=== PATIENT | female | born 1970 | race Caucasian/White ===

== ENCOUNTER → 2020-04-30 10:58 | Outpatient (CLI) | payer BC, OTHER, SELFPAY ==
--- NOTE | 2020-04-30 | DI.MG.S_ITS ---
BILATERAL DIGITAL SCREENING MAMMOGRAM 3D/2D WITH CAD: 04/30/2020 CLINICAL: Routine screening. Family history of breast cancer. Comparison is made to exams dated: 04/01/2019 mammogram and 03/29/2018 mammogram - [facility]. The tissue of both breasts is heterogeneously dense. This may lower the sensitivity of mammography. Current study was also evaluated with a Computer Aided Detection (CAD) system. No significant masses, calcifications, or other findings are seen in either breast. There has been no significant interval change. IMPRESSION: NEGATIVE There is no mammographic evidence of malignancy. A 1 year screening mammogram is recommended. This exam was interpreted at Station ID: [id number]. NOTE: For mammograms, a report in lay terms will be sent to the patient. Approximately 15% of breast malignancies will not be visualized mammographically. In the management of a palpable breast mass, a negative mammogram must not discourage biopsy of a clinically suspicious lesion. Electronically Signed By: Kyle arteaga/jeffrey:05/05/2020 12:16:29 letter sent: Normal Exam ACR BI-RADS Category 1: Negative 3341F
== END ==
PROVIDERS: PCP Nurse Practitioner Family; Referring Provider Nurse Practitioner Family; Visit Provider Nurse Practitioner Family
DX: Z12.31 Encounter for screening mammogram for malignant neoplasm of breast (principal); Z80.3 Family history of malignant neoplasm of breast
CPT/HCPCS: 77063; 77067

== ENCOUNTER → 2020-07-19 09:31 | Outpatient (CLI) | payer BC, OTHER, SELFPAY ==
[2020-07-19 10:09] LABS: COVID19 -Nasal RAPID Negative (Negative)
== END ==
PROVIDERS: PCP Nurse Practitioner Family; Visit Provider Physician Assistant
DX: Z20.822 Contact with and (suspected) exposure to COVID-19 (principal)
CPT/HCPCS: 87635

== ENCOUNTER 2020-07-21 07:17 | Day surgery (SDC) | payer BC, OTHER, SELFPAY ==
--- NOTE | 2020-07-21 | PATH_ITS ---
[facility] Accession Number: [id number] . 01 Material submitted: . PART A: cecum - CECUM BIOPSY PART B: colon - ASCENDING COLON BIOPSY PART C: colon - ASCENDING COLON POLYP PART D: colon - TRANSVERSE COLON BIOPSY PART E: colon - DESCENDING COLON BIOPSY PART F: sigmoid colon - SIGMOID COLON BIOPSY PART G: rectum - RECTUM BIOPSY . 01 Clinical history: . SCREENING COLONOSCOPY . 02 Diagnosis: A. Cecum, Biopsy: Chronic colitis with mild neutrophilic activity. Negative for granulomas, dysplasia and malignancy. . B. Ascending Colon, Biopsy: Chronic colitis with mild neutrophilic activity. Negative for granulomas, dysplasia and malignancy. . C. Ascending Colon, Polyp, Biopsy: Sessile serrated adenoma. . D. Transverse Colon, Biopsy: Minimally active colitis. Negative for granulomas, dysplasia and malignancy. . E. Descending Colon, Biopsy: Colonic mucosa with no significant diagnostic abnormality. Negative for active inflammation, granulomas, dysplasia, and malignancy. . F. Sigmoid Colon, Biopsy: Minimal distortion of the crypt architecture without active inflammation. Negative for granulomas, dysplasia and malignancy. . G. Rectum, Biopsy: Minimal distortion of the crypt architecture without active inflammation. Negative for granulomas, dysplasia and malignancy. [facility] 07/23/2020 [facility] Local . 02 Comment: The morphologic appearance is compatible with the clinical history of ulcerative colitis if infection and medication-related mucosal injury are excluded. . 02 Electronically signed: . Natividad Price MD, Pathologist NPI- [id number] . 01 Gross description: . Part A: CECUM BIOPSY: Received in formalin are 4 fragment(s) of villanueva, soft tissue measuring 0.1 x 0.1 x 0.1 cm to 0.3 x 0.2 x 0.2 cm submitted entirely in 1 cassette(s) Part B: ASCENDING COLON BIOPSY: Received in formalin are multiple fragment(s) of villanueva, soft tissue measuring 0.1 x 0.1 x 0.1 cm to 0.3 x 0.3 x 0.3 cm submitted entirely in 1 cassette(s) Part C: ASCENDING COLON POLYP: Received in formalin are 4 fragment(s) of villanueva, soft tissue measuring 0.2 x 0.1 x 0.1 cm to 0.7 x 0.6 x 0.3 cm submitted entirely in 1 cassette(s) Part D: TRANSVERSE COLON BIOPSY: Received in formalin are 4 fragment(s) of villanueva, soft tissue measuring 0.2 x 0.2 x 0.2 cm to 0.4 x 0.2 x 0.2 cm submitted entirely in 1 cassette(s) Part E: DESCENDING COLON BIOPSY: Received in formalin are 4 fragment(s) of villanueva, soft tissue measuring 0.2 x 0.1 x 0.1 cm to 0.3 x 0.2 x 0.2 cm submitted entirely in 1 cassette(s) Part F: SIGMOID COLON BIOPSY: Received in formalin are 4 fragment(s) of villanueva, soft tissue measuring 0.2 x 0.2 x 0.2 cm to 0.3 x 0.2 x 0.2 cm submitted entirely in 1 cassette(s) Part G: RECTUM BIOPSY: Received in formalin are 4 fragment(s) of villanueva, soft tissue measuring 0.1 x 0.1 x 0.1 cm to 0.5 x 0.2 x 0.2 cm submitted entirely in 1 cassette(s) /MATTHEW 07/22/2020 1859 Local . 02 Pathologist provided ICD-10: D12.2, K51.90 . 02 CPT . 314179, 670016, 576750, 179403, 091876, 223213, 525022 Performed at: 01 [facility] [address] [facility], [place], [place] [id number] MD Kyle Shetty MD Phone: [phone] Performed at: 02 [facility] [place] [address] [place], [place] [id number] MD Natividad Price MD Phone: [phone]
[2020-07-21 07:49] VITALS: BP 124/69; PULSE 62; RESP 14; TEMP 36.9; O2SAT 99
[2020-07-21] MEDS: SODIUM CHLORIDE 0.9% 1,000 ML 100 ML IV (07:49)
[2020-07-21 07:51] VITALS: BMI 26.8
--- NOTE | 2020-07-21 08:03 | PM.HP.1 ---
History of Present Illness History of Present Illness Date Patient Seen: 07/21/20 Chief complaint: SCREENING COLONOSCOPY Narrative: 50-year-old female with history of ulcerative proctosigmoiditis with last colonoscopy done in January 2019 who is here for disease activity assessment., please see my note from 04/07/2020 Patient History Medical History (Updated 07/21/20 @ 07:37 by Fabienne Lara RN) History of colitis Hyperlipidemia Ulcerative colitis Surgical History (Updated 07/21/20 @ 07:37 by Fabienne Lara RN) History of colonoscopy Family & Social History Social History: household members spouse Tobacco & Substance use: Smoking Status Never smoker alcohol intake current alcohol intake frequency a few times a week Substance Use Type does not use Meds Home Medications and Allergies Home Medications Medication Instructions Recorded Confirmed Type docusate calcium 2 mg PO BEDTIME PRN 07/21/20 07/21/20 History mesalamine 4 g CA Q3D 07/21/20 07/21/20 History Allergies Allergy/AdvReac Type Severity Reaction Status Date / Time penicillin V Allergy Intermediate Unknown Verified 07/21/20 07:38 Exam Vital Signs (past 8 hours): - 07/21/20 07:49 Temperature 98.5 F Pulse Rate 62 Respiratory Rate 14 Blood Pressure 124/69 Pulse Oximetry 99 Oxygen Delivery Method Room Air Narrative Exam Narrative: General: Patient is well developed, not in apparent distress Cardiovascular: Regular rate and rhythm, no murmurs, rubs, or gallops; no evidence of edema; no palpable abdominal aortic aneurysm Gastrointestinal: Normoactive bowel sounds, soft, nontender, nondistended, no rebound tenderness, no hepatosplenomegaly, no evidence of hernia Assessment & Plan Assessment & Plan narrative: 50-year-old female with ulcerative proctosigmoiditis here for disease activity assessment as her last colonoscopy performed in January 2019 showed persistent colitis Regarding the procedure(s), the risks and potential complications, benefits, and alternatives (including not doing the procedure) were discussed with the patient. The risks include but are not limited to bleeding, splenic injury, infection, perforation which may require surgical intervention, missed lesions, and adverse reactions to sedative medicines. After a question and answer period, the patient agreed to proceed with the procedure(s) and gives informed consent.
[2020-07-21] MEDS: fentaNYL 250 MCG/5 ML INJ IV (08:20)
--- NOTE | 2020-07-21 08:21 | PM.OP.ENDO ---
Operative Date/Time/Diagnoses Date of procedure: 07/21/20 Procedure Notes Procedure in detail: Surgeon: Tommy Frazier MD Procedure: Colonoscopy with polypectomy and biopsies Preoperative diagnosis: Ulcerative proctitis, disease activity assessment Postoperative diagnosis: Proctitis and probable inflammation in the proximal colon; ascending colon polyp status post polypectomy Medications: Conscious sedation using 5 mg IV of Midazolam and 100 mcg IV of Fentanyl Preanesthesia Assessment An H and P was performed/updated and the Px?s ASA class is 2. The procedure was discussed in detail with the patient. The potential risks and complications including infection, bleeding, missed lesions, perforation, need for surgery in case of perforation, prolonged hospital stay, and were explained. A brief question and answer period was allotted and once all questions were answered, informed consent was obtained. The patient was brought back to the procedure room and placed on standard monitoring. The patient?s vital signs were monitored continuously throughout the entire procedure. Prior to starting, a timeout was performed to confirm the patient?s identity, allergies, medications, and procedure. Procedure in detail The patient was placed in left lateral decubitus position and once adequate sedation was obtained a JARRED was performed. The digital rectal examination did not reveal any palpable lesions. The tip of the colonoscope was placed in the anal canal and advanced without difficulty all the way to the cecum which was identified by the appendiceal orifice and the ileocecal valve. Careful examination of all abreu of the colon was performed with irrigation of any residual stool. In the cecum, and proximal ascending colon, there was note of probable colitis with erythema and loss of vascular pattern. Biopsies were performed of this area. In the ascending colon, a 10 mm sessile polyp was removed by means of cold snare. Resection and retrieval was complete with minimal bleeding The distal ascending colon, transverse colon, descending colon, sigmoid colon, and rectosigmoid colon had is a normal vascular pattern. Biopsies were taken of these areas In the rectum, there was note of inflammation consistent with a history of proctitis. Biopsies were taken of this area. Retroflexion was performed which revealed no significant lesions. The patient tolerated the procedure well and will be brought back to the recovery area to be discharged once criteria are met. The prep was judged to be good and adequate to identify polyps less than 5 mm. The withdrawal time was 12 minutes. The total physician intraservice time was 23 minutes. Complications There were no complications and estimated blood loss was minimal. Recommendations: Resume previous diet Increase Lialda to 4.8 g daily (4 tablets a day) Increase mesalamine enema frequency to daily at bedtime Follow up pathology results Repeat colonoscopy in 1 year to reassess response to therapy Call our office ([facility]) to schedule follow-up with me in 3 months An emergency contact number was given to the patient for any complications related to the procedure
[2020-07-21] MEDS: MIDAZOLAM 5 MG/5 ML VIAL IV (08:30)
[2020-07-21 08:51] VITALS: BP 120/58; PULSE 55; RESP 19; TEMP 36.6; O2SAT 100
[2020-07-21 08:52] VITALS: BP 114/57; PULSE 55; RESP 18; O2SAT 99
[2020-07-21 08:56] VITALS: BP 119/58; PULSE 57; RESP 17; TEMP 36.6; O2SAT 100
[2020-07-21 09:01] VITALS: BP 125/65; PULSE 55; RESP 18; TEMP 36.6; O2SAT 100
--- NOTE | 2020-07-21 09:22 | SUR.PHASEII ---
called, pt ready to go, left unit in stable condition, belly soft denied pain no c/o nausea.
== END 2020-07-21 09:10 | disposition home or self-care (01) ==
PROVIDERS: PCP Nurse Practitioner Family; Referring Provider Nurse Practitioner Family; Visit Provider Internal Medicine Gastroenterology
PROC: 0DJD8ZZ Inspection of Lower Intestinal Tract, Via Natural or Artificial Opening Endoscopic (ICD-10-PCS; CPT 45378; principal; 2020-07-21 08:30)
DX: K51.80 Other ulcerative colitis without complications (principal); K51.20 Ulcerative (chronic) proctitis without complications; Z09 Encounter for follow-up examination after completed treatment for conditions other than malignant neoplasm; E78.5 Hyperlipidemia, unspecified; D12.2 Benign neoplasm of ascending colon
CPT/HCPCS: 45380; 45385; J2250; J3010

== ENCOUNTER → 2021-05-11 12:04 | Outpatient (CLI) | payer BC, OTHER, SELFPAY ==
--- NOTE | 2021-05-11 12:06 | DI.MG.S_ITS ---
BILATERAL DIGITAL SCREENING MAMMOGRAM 3D/2D WITH CAD: 05/11/2021 CLINICAL: Routine screening. Family history of breast cancer. Comparison is made to exams dated: 04/30/2020 mammogram - [facility], 04/01/2019 mammogram, and 03/29/2018 mammogram - [facility]. The tissue of both breasts is heterogeneously dense. This may lower the sensitivity of mammography. Current study was also evaluated with a Computer Aided Detection (CAD) system. No significant masses, calcifications, or other findings are seen in either breast. There has been no significant interval change. IMPRESSION: NEGATIVE There is no mammographic evidence of malignancy. A 1 year screening mammogram is recommended. This exam was interpreted at Station ID: [id number]. NOTE: For mammograms, a report in lay terms will be sent to the patient. Approximately 15% of breast malignancies will not be visualized mammographically. In the management of a palpable breast mass, a negative mammogram must not discourage biopsy of a clinically suspicious lesion. Electronically Signed By: Manuel higginbotham/jeffrey:05/11/2021 15:59:28 letter sent: Normal Exam ACR BI-RADS Category 1: Negative 3341F
== END ==
PROVIDERS: PCP Family Medicine; Referring Provider Nurse Practitioner Family; Visit Provider Nurse Practitioner Family
DX: Z12.31 Encounter for screening mammogram for malignant neoplasm of breast (principal); Z80.3 Family history of malignant neoplasm of breast
CPT/HCPCS: 77063; 77067

== ENCOUNTER → 2021-08-12 09:57 | Outpatient (CLI) | payer BC, OTHER, SELFPAY ==
[2021-08-12 14:17] LABS: COVID19 -Nasal RAPID Negative (Negative)
== END ==
PROVIDERS: PCP Family Medicine; Visit Provider Family Medicine Sleep Medicine
DX: Z20.822 Contact with and (suspected) exposure to COVID-19 (principal)
CPT/HCPCS: 87635; C9803

== ENCOUNTER 2021-08-15 06:42 | Day surgery (SDC) | payer BC, OTHER, SELFPAY ==
--- NOTE | 2021-08-15 | PATH_ITS ---
[facility] Accession Number: [id number] . 01 Material submitted: . PART A: colon - ASCENDING COLON BIOPSY PART B: colon - TRANSVERSE COLON BIOPSY PART C: colon - DESCENDING COLON BIOPSY PART D: colon - SIGMOID COLON BIOPSY PART E: rectum - RECTAL COLON BIOPSY . 02 Diagnosis: A. Ascending Colon Biopsy: Chronic severely active colitis with erosion. Negative for CMV antigen by immunohistochemistry. Negative for granulomas, dysplasia and malignancy. . B. Transverse Colon, Biopsy: Colonic mucosa with no significant diagnostic abnormality. Negative for active inflammation, granulomas, dysplasia, and malignancy. . C. Descending Colon, Biopsy: Mildly hyperplastic colonic mucosa with no significant diagnostic abnormality. Negative for active inflammation, granulomas, dysplasia and malignancy. . D. Sigmoid Colon, Biopsy: Colonic mucosa with no significant diagnostic abnormality. Negative for active inflammation, granulomas, dysplasia, and malignancy. . E. Rectum, Biopsy: Hyperplastic colonic mucosa with no significant diagnostic abnormality. Negative for active inflammation, granulomas, dysplasia and malignancy. [facility] 08/19/2021 1330 Local . 02 Comment: The morphologic appearance could be compatible with the provided clinical history of ulcerative colitis under active medical management, if infection and medication-related mucosal injury are excluded. . 02 Electronically signed: . Natividad Price MD, Pathologist NPI- [id number] . 01 Gross description: . Part A: ASCENDING COLON BIOPSY: Received in formalin is 1 fragment(s) of villanueva, soft tissue measuring 0.2 x 0.2 x 0.2 cm submitted entirely in 1 cassette(s) Part B: TRANSVERSE COLON BIOPSY: Received in formalin is 1 fragment(s) of villanueva, soft tissue measuring 0.3 x 0.2 x 0.2 cm submitted entirely in 1 cassette(s) Part C: DESCENDING COLON BIOPSY: Received in formalin is 1 fragment(s) of villanueva, soft tissue measuring 0.3 x 0.2 x 0.2 cm submitted entirely in 1 cassette(s) Part D: SIGMOID COLON BIOPSY: Received in formalin are 2 fragment(s) of villanueva, soft tissue measuring 0.1 x 0.1 x 0.1 cm to 0.3 x 0.3 x 0.2 cm submitted entirely in 1 cassette(s) Part E: RECTAL COLON BIOPSY: Received in formalin are 2 fragment(s) of villanueva, soft tissue measuring 0.1 x 0.1 x 0.1 cm to 0.2 x 0.2 x 0.2 cm submitted entirely in 1 cassette(s) /MATTHEW 08/16/20212002 Local . 02 Microscopic: . A CMV immunohistochemical stain was performed to evaluate for CMV antigen and is negative. The control stain showed appropriate reactivity. . * This test was developed and its performance characteristics determined by [employer]. It has not been cleared or approved by the U.S. Food and Drug Administration. The FDA has determined that such clearance or approval is not necessary. This test is used for clinical purposes. It should not be regarded as investigational or for research. . 02 Pathologist provided ICD-10: K51.00 . 02 CPT . 441060, 511384, 299057, 810508, 726934, C54803 Performed at: 01 [facility] [address] [address], [place], [place] [id number] MD Kyle Shetty MD Phone: [phone] Performed at: 02 [place] [id number] [place] [id number] MD Natividad Price MD Phone: [phone]
[2021-08-15 07:04] VITALS: BP 121/70; PULSE 58; RESP 16; TEMP 36.6; O2SAT 99; BMI 23.8
--- NOTE | 2021-08-15 07:50 | P.HP_ITS ---
History of Present Illness History of Present Illness Date Patient Seen: 08/15/21 Time Patient Seen: 07:51 Chief complaint: DX COLONOSCOPY W/POSS BX Narrative: I reviewed Dr. Walker was recent notes. Ulcerative colitis was diagnosed in 2018. She had signs of inflammation at colonoscopy 1 year ago she remains on oral and rectal mesalamine. Patient History Medical History History of colitis Hyperlipidemia Insomnia due to medical condition Obstructive sleep apnea, adult Ulcerative colitis Surgical History History of colonoscopy Family & Social History Family History Mother Hypertension Dementia Family/Other Insomnia Social History: household members spouse Tobacco & Substance use: Smoking Status Never smoker alcohol intake current alcohol intake frequency a few times a week Substance Use Type does not use Meds Home Medications and Allergies Home Medications Medication Instructions Recorded Confirmed Type peonevzbpl-nxqcavlzukama-zbcokkoa 1 tab PO PRN PRN 07/21/20 03/17/21 History 50 mg-325 mg-40 mg tablet cholecalciferol (vitamin D3) 50 50 mcg PO DAILY 07/21/20 03/17/21 History mcg (2,000 unit) tablet (Vitamin D3) conj estrogen-medroxyprogesterone 1 tab PO DAILY 07/21/20 03/17/21 History 0.625 mg-2.5 mg tablet (Prempro) docusate calcium 50 mg capsule 2 mg PO BEDTIME PRN 07/21/20 03/17/21 History mesalamine 1.2 gram tablet,delayed 2 g PO DAILY 07/21/20 03/17/21 History release mesalamine 4 gram/60 mL enema 4 g NH Q3D 07/21/20 03/17/21 History ondansetron HCl 4 mg tablet 4 mg PO PRN PRN 07/21/20 03/17/21 History rosuvastatin 20 mg tablet (Crestor) 20 mg PO DAILY 07/21/20 03/17/21 History sumatriptan succinate 100 mg 100 mg PO PRN PRN 07/21/20 03/17/21 History tablet (Imitrex) sumatriptan succinate 50 mg tablet 50 mg PO PRN PRN 07/21/20 03/17/21 History fexofenadine 60 mg tablet 60 mg PO DAILY tab 10/19/20 03/17/21 History doxepin 6 mg tablet 6 mg PO BEDTIME PRN 02/03/21 03/17/21 History Respironics [place] 2 #1 ea 03/17/21 03/17/21 Rx Allergies Allergy/AdvReac Type Severity Reaction Status Date / Time penicillin V Allergy Intermediate Unknown Verified 08/15/21 06:59 Review of Systems Review of Systems ROS: Yes All systems reviewed with the patient and are negative except as otherwise documented Exam Vital Signs (past 8 hours): - 08/15/21 07:04 Temperature 97.8 F Pulse Rate 58 L Respiratory Rate 16 Blood Pressure 121/70 Pulse Oximetry 99 Oxygen Delivery Method Room Air Const General: cooperative and comfortable Orientation: alert HENMT Head: normocephalic Ears: external ears normal Nose: external nose normal Face and sinus: normal facial exam Mouth: oral mucosae normal Eyes General: appearance normal, both eyes and all related structures Neck Neck: normal visual inspection Chest Chest: normal inspection of the chest Resp Effort & Inspection: normal respiratory effort Cardio Rate: regular rate GI Inspection: normal to inspection Skin General: no rashes or lesions noted and No jaundice Neuro General: patient alert and moves all extremities Cognition: normal cognition Speech: speech normal Extrem General: no pedal edema Psych Appearance: grossly normal Assessment & Plan Assessment & Plan narrative: 51-year-old female with a history of serrated adenoma and ulcerative colitis. Colonoscopy is pursued today delay could be expected to result in the less posi tive ultimate Medical outcome Time Spent With Patient Critical Care time: I spent a total of [] minutes of critical care time on this patient's care today; this time is exclusive of procedural time.
--- NOTE | 2021-08-15 07:54 | PM.PREOP ---
Pre-operative Note COVID-19 COVID-19 status: Negative Result date/Date tested (Pos, Neg/Pending): 08/12/21 Criteria for continued procedure: Possibility delay results in more complex future surgery or treatment and Delay expected to result in less-positive ultimate med/surg outcome Interval Note History & Physical reviewed/Exam performed by Physician: Yes Changes to H&P: No ASA Class (for procedural sedation): II
--- NOTE | 2021-08-15 08:29 | PM.OP.COLON ---
Operative Date/Time/Diagnoses Date of procedure: 08/15/21 Time of procedure: 08:29 Pre-op diagnosis: Ulcerative colitis colon polyp Post-op diagnosis: same Procedure & Clinicians Study performed: Colonoscopy with biopsy Same procedure as scheduled: Yes Indications: Ulcerative colitis colon polyp Surgeon: Harry Castle Procedure Notes SCOAP/Timeout: Done Procedure in detail: After the risks and benefits were explained, written and verbal informed consent was obtained. The patient was brought into the procedure room and placed into the left lateral decubitus position. Conscious sedation medication was applied as per nursing documentation. Digital rectal examination was accomplished. The scope was introduced into the patient and advanced under direct visualization to the cecum as identified by the appendiceal orifice and ileocecal valve. The scope was slowly withdrawn to carefully examine the mucosa for any defects or lesions. Comprehensive imaging was accomplished throughout the rectum including the dentate line. The colon was decompressed, the scope was then removed from the patient who tolerated the procedure well. Scope withdrawal time: 13 minutes Sedation minutes: 28 Complications: none Impression: Long redundant colon. In order to achieve cecal intubation the stiffener was required. All of the scope was required. I did not appreciate any evidence of proctitis. There was minimal patchy erosive features in the proximal ascending colon near the ileocecal valve otherwise the colon was overall normal in appearance. Random biopsy was taken from the mildly inflamed portion of the proximal ascending and then at random through the transverse descending sigmoid and rectum. Endoscopic diagnosis 1. Small focus of subtle inflammation in ascending colon 2. Otherwise visually unremarkable colonoscopy 3. Lengthy redundant colon Post-procedure Plan for aftercare: 1. Await histopathology 2. Repeat colonoscopy 5 years considering polyp history at that time repeat surveillance biopsies would also be indicated. 3. Follow up Dr. Frazier Disposition: PACU
[2021-08-15 08:30] VITALS: BP 110/60; PULSE 55; RESP 16; TEMP 36.1; O2SAT 98
[2021-08-15 08:37] VITALS: BP 104/61; PULSE 50; RESP 16; O2SAT 99
[2021-08-15 08:42] VITALS: BP 104/61; BP 105/60; PULSE 50; PULSE 51; RESP 16; O2SAT 98; O2SAT 99
[2021-08-15 08:48] VITALS: BP 104/74; PULSE 52; RESP 16; TEMP 36.4; O2SAT 98
[2021-08-15 08:58] VITALS: BP 121/70; PULSE 58; RESP 16; TEMP 36.6; O2SAT 99
--- NOTE | 2021-08-15 09:10 | SUR.PHASEII ---
Belly soft pt ready to go, left unit in stable condition.
== END 2021-08-15 09:11 | disposition home or self-care (01) ==
PROVIDERS: PCP Family Medicine; Referring Provider Internal Medicine Gastroenterology; Visit Provider Internal Medicine Gastroenterology
PROC: 0DJD8ZZ Inspection of Lower Intestinal Tract, Via Natural or Artificial Opening Endoscopic (ICD-10-PCS; CPT 45378; principal; 2021-08-15 08:00)
DX: K51.00 Ulcerative (chronic) pancolitis without complications (principal); E78.5 Hyperlipidemia, unspecified; G47.33 Obstructive sleep apnea (adult) (pediatric)
CPT/HCPCS: 45380

== ENCOUNTER → 2022-05-26 07:40 | Outpatient (CLI) | payer BC, OTHER, SELFPAY ==
--- NOTE | 2022-05-26 | DI.MG.S_ITS ---
BILATERAL DIGITAL SCREENING MAMMOGRAM 3D/2D WITH CAD: 05/26/2022 CLINICAL: Routine screening. Family history of breast cancer. Comparison is made to exams dated: 05/11/2021 mammogram, 04/30/2020 mammogram - [facility], and 04/01/2019 mammogram - [facility]. Both breasts are heterogeneously dense, which may obscure small masses (category c / 51-75% glandular tissue). Current study was also evaluated with a Computer Aided Detection (CAD) system. No significant masses, calcifications, or other findings are seen in either breast. There has been no significant interval change. IMPRESSION: NEGATIVE There is no mammographic evidence of malignancy. A 1 year screening mammogram is recommended. Based on Tyrer-Cuzick model (a risk assessment model), the patient's lifetime risk is 24.2% and her 10 year risk is 7.0%. If a patient has an elevated risk, a more comprehensive evaluation should be considered and/or a referral to a genetic counselor. The [place] Cancer Society, [employer] College of Radiology, and NCCN Guidelines advise the consideration of Breast MRI as an adjunct to screening mammography in patients whose Lifetime risk to develop breast cancer is 20% or higher. This exam was interpreted at Station ID: [id number]. NOTE: For mammograms, a report in lay terms will be sent to the patient. Approximately 15% of breast malignancies will not be visualized mammographically. In the management of a palpable breast mass, a negative mammogram must not discourage biopsy of a clinically suspicious lesion. Electronically Signed By: Jared hernández/jeffrey:05/26/2022 15:13:29 letter sent: Normal Exam ACR BI-RADS Category 1: Negative 3341F
== END ==
PROVIDERS: PCP Family Medicine; Referring Provider Family Medicine; Visit Provider Family Medicine
DX: Z12.31 Encounter for screening mammogram for malignant neoplasm of breast (principal); Z80.3 Family history of malignant neoplasm of breast
CPT/HCPCS: 77063; 77067

== ENCOUNTER → 2023-05-28 08:28 | Outpatient (CLI) | payer BC, OTHER, SELFPAY ==
--- NOTE | 2023-05-28 | DI.MG.S_ITS ---
BILATERAL DIGITAL SCREENING MAMMOGRAM 3D/2D WITH CAD: 05/28/2023 CLINICAL: Routine screening. Family history of breast cancer. Comparison is made to exams dated: 05/26/2022 mammogram, 05/11/2021 mammogram, and 04/30/2020 mammogram - [facility]. Both breasts are heterogeneously dense, which may obscure small masses (category c / 51-75% glandular tissue). Current study was also evaluated with a Computer Aided Detection (CAD) system. No significant masses, calcifications, or other findings are seen in either breast. IMPRESSION: NEGATIVE There is no mammographic evidence of malignancy. A 1 year screening mammogram is recommended. Based on Tyrer-Cuzick model (a risk assessment model), the patient's lifetime risk is 24.0% and her 10 year risk is 7.3%. If a patient has an elevated risk, a more comprehensive evaluation should be considered and/or a referral to a genetic counselor. The [place] [employer], [place] [employer], and NCCN Guidelines advise the consideration of Breast MRI as an adjunct to screening mammography in patients whose Lifetime risk to develop breast cancer is 20% or higher. This exam was interpreted at Station ID: [id number]. NOTE: For mammograms, a report in lay terms will be sent to the patient. Approximately 15% of breast malignancies will not be visualized mammographically. In the management of a palpable breast mass, a negative mammogram must not discourage biopsy of a clinically suspicious lesion. Electronically Signed By: Lilli Cross M.D., PH.D kelsey/[email or web address]:05/28/2023 19:04:58 letter sent: Normal Exam ACR BI-RADS Category 1: Negative [id number]
== END ==
PROVIDERS: PCP Family Medicine; Referring Provider Family Medicine; Visit Provider Family Medicine
DX: Z12.31 Encounter for screening mammogram for malignant neoplasm of breast (principal); Z80.3 Family history of malignant neoplasm of breast
CPT/HCPCS: 77063; 77067

== ENCOUNTER 2023-07-25 07:06 | Day surgery (SDC) | payer BC, OTHER, SELFPAY ==
[2023-07-25] VITALS (7 sets, daily range): BP systolic 92–122; BP diastolic 51–70; PULSE 60–72; RESP 15–53; TEMP 36.4–36.6; O2SAT 97–100; BMI 31.1
--- NOTE | 2023-07-25 | PATH_ITS ---
[facility] Accession Number: [id number] No. of containers..04 Tissue . 01 Material submitted: . PART A: colon - RIGHT COLON PART B: colon - LEFT COLON PART C: colon - TRANSVERSE PART D: ileo-cecal valve - IC VALVE . 01 Diagnosis: A-C. Right Colon, Left Colon, Transverse Colon, Biopsies: Colonic mucosa with no significant diagnostic abnormality. Negative for active inflammation, granulomas, dysplasia, and malignancy. . D. Ileocecal Valve, Biopsy: Chronic colitis with moderate neutrophilic activity. Negative for granulomas, dysplasia, or malignancy. [facility] 07/30/2023 1056 Local . 01 Comment: No obvious viral cytopathic effects or parasitic organisms are identified. The morphologic appearance could be compatible with the provided clinical history of ulcerative colitis if infection and medication related mucosal injury are excluded. . 01 Electronically signed: . Natividad Price MD, Pathologist NPI- [id number] . 01 Gross description: . Part A: RIGHT COLON: Received in formalin is multiple fragment(s) of villanueva, soft tissue measuring 1.5 x 0.5 x 0.1 cm in aggregate submitted entirely in 1 cassette(s) Part B: LEFT COLON: Received in formalin is multiple fragment(s) of villanueva, soft tissue measuring 1.0 x 0.5 x 0.1 cm in aggregate submitted entirely in 1 cassette(s) Part C: TRANSVERSE : Received in formalin is 3 fragment(s) of villanueva, soft tissue measuring 0.4 x 0.3 x 0.2 cm to 0.2 x 0.2 x 0.1 cm submitted entirely in 1 cassette(s) Part D: IC VALVE: Received in formalin is 2 fragment(s) of villanueva, soft tissue measuring 0.2 x 0.2 x 0.1 cm to 0.2 x 0.1 x 0.1 cm submitted entirely in 1 cassette(s) /AAY 07/26/2023 0533 Local . 01 Pathologist provided ICD-10: K51.00 . 01 CPT . 965177, 950123, 004897, 191165 Specimen Comment: A courtesy copy of this report has been sent to [phone] Performed at: 01 [facility] [address] [place] [address], [place], [place] [id number] MD Kyle Shetty MD Phone: [phone]
[2023-07-25] MEDS: LACTATED RINGERS 1,000 ML 100 ML IV (07:53)
--- NOTE | 2023-07-25 09:12 | P.HP_ITS ---
History of Present Illness History of Present Illness Date Patient Seen: 07/25/23 Chief complaint: Dx Colonoscopy w/poss bx Narrative: History of pancolonic ulcerative colitis last colonoscopy 2 years ago need for follow-up colonoscopy and multiple biopsies. [facility] Medical History (Updated 07/10/23 @ 11:41 by Prince Renae) Insomnia Obstructive sleep apnea, adult History of colitis Hyperlipidemia Ulcerative colitis Surgical History (Updated 07/10/23 @ 11:41 by Prince Renae) History of colonoscopy Family History (System 07/10/23 @ 11:41 by Prince Renae) Mother Hypertension Dementia Family/Other Insomnia Social History (System 07/10/23 @ 11:41 by Prince Renae) household members: spouse Smoking Status: Never smoker alcohol intake: current Meds Home Medications and Allergies Home Medications Medication Instructions Recorded Confirmed Type lhxxlnoqbf-dynngckagsrdi-bwrynjta 1 tab PO PRN PRN Migraines 07/21/20 07/25/23 History 50 mg-325 mg-40 mg tablet cholecalciferol (vitamin D3) 50 50 mcg PO DAILY 07/21/20 07/25/23 History mcg (2,000 unit) tablet (Vitamin D3) conj estrogen-medroxyprogesterone 1 tab PO DAILY 07/21/20 07/25/23 History 0.625 mg-2.5 mg tablet (Prempro) docusate calcium 50 mg capsule 2 mg PO BEDTIME PRN Constipation 07/21/20 07/25/23 History mesalamine 1.2 gram tablet,delayed 2 g PO DAILY 07/21/20 12/14/21 History release mesalamine 4 gram/60 mL enema 4 g TX Q3D 07/21/20 07/25/23 History ondansetron HCl 4 mg tablet 4 mg PO PRN PRN Migraines 07/21/20 07/25/23 History rosuvastatin 20 mg tablet (Crestor) 20 mg PO DAILY 07/21/20 07/25/23 History sumatriptan succinate 100 mg 100 mg PO PRN PRN Migraines 07/21/20 07/25/23 History tablet (Imitrex) sumatriptan succinate 50 mg tablet 50 mg PO PRN PRN Migraines 07/21/20 07/25/23 History fexofenadine 60 mg tablet 60 mg PO DAILY 10/19/20 07/25/23 History eszopiclone 1 mg tablet (Lunesta) 1 mg PO BEDTIME #30 tabs 12/14/21 07/25/23 Rx albuterol sulfate 90 mcg/actuation 2 puff inhalation Q4H PRN Cough 07/25/2307/16 History aerosol inhaler Allergies Allergy/AdvReac Type Severity Reaction Status Date / Time penicillin V Allergy Intermediate Unknown Verified 07/25/23 08:05 Exam Vital Signs (past 8 hours): - 07/25/23 07:55 Temperature 97.7 F Pulse Rate 62 Respiratory Rate 16 Blood Pressure 122/70 Pulse Oximetry 99 Oxygen Delivery Method Room Air Oxygen Delivery Method Room Air Narrative Exam Narrative: Oropharynx free of lesions Chest clear to auscultation percussion Cardiac exam reveals no S3 or murmur Assessment & Plan Assessment & Plan narrative: History of ulcerative colitis need for follow-up colonoscopy and biopsy. Risks, benefits, alternatives have been explained.
--- NOTE | 2023-07-25 09:14 | PM.OP.COLON ---
Operative Date/Time/Diagnoses Date of procedure: 07/25/23 Pre-op diagnosis: See indication and findings Procedure & Clinicians Study performed: Colonoscopy with biopsy Indications: History of pancolonic ulcerative colitis need for 2 year follow-up Surgeon: Silvana Lewis Procedure Notes Procedure in detail: After informed consent was obtained the patient was placed in left lateral decubitus position. The video colonoscope was introduced to the rectum slowly advanced to the cecum, though the area under the IC valve could not be completely visualized.. Preparation was good. On slow withdrawal mucosa was carefully examined. The scope was removed. The patient tolerated procedure well. Blood loss none Complications none Sedation mac Findings 1. Mild inflammation at the IC valve biopsied. 2. Remainder of the colon appeared normal. Two biopsies were taken every 10 cm in the right, transverse, and left colon. Patient is doing well symptomatically. Suggest follow-up colonoscopy with biopsy in 2 years.
== END 2023-07-25 10:35 | disposition home or self-care (01) ==
PROVIDERS: Referring Provider Internal Medicine Gastroenterology; Visit Provider Internal Medicine Gastroenterology
PROC: 0DJD8ZZ Inspection of Lower Intestinal Tract, Via Natural or Artificial Opening Endoscopic (ICD-10-PCS; CPT 45378; principal; 2023-07-25 09:00)
DX: K51.00 Ulcerative (chronic) pancolitis without complications (principal); Z87.19 Personal history of other diseases of the digestive system
CPT/HCPCS: 45380; J2704

== ENCOUNTER → 2024-05-29 08:05 | Outpatient (CLI) | payer BC, OTHER, SELFPAY ==
--- NOTE | 2024-05-29 08:05 | DI.MG.S_ITS ---
BILATERAL DIGITAL SCREENING MAMMOGRAM 3D/2D WITH CAD: 05/29/2024 CLINICAL: Routine screening. Family history of breast cancer. Comparison is made to exams dated: 05/28/2023 mammogram, 05/26/2022 mammogram, and 05/11/2021 mammogram - [facility]. The breasts are heterogeneously dense, which may obscure small masses (category c / 51-75% glandular tissue). Current study was also evaluated with a Computer Aided Detection (CAD) system. No significant masses, calcifications, or other findings are seen in either breast. There has been no significant interval change. IMPRESSION: NEGATIVE There is no mammographic evidence of malignancy. A 1 year screening mammogram is recommended. Based on Tyrer-Cuzick model (a risk assessment model), the patient's lifetime risk is 23.7% and her 10 year risk is 7.6%. If a patient has an elevated risk, a more comprehensive evaluation should be considered and/or a referral to a genetic counselor. The [place] [employer], [place] [employer], and NCCN Guidelines advise the consideration of Breast MRI as an adjunct to screening mammography in patients whose Lifetime risk to develop breast cancer is 20% or higher. This exam was interpreted at Station ID: [id number]. NOTE: For mammograms, a report in lay terms will be sent to the patient. Approximately 15% of breast malignancies will not be visualized mammographically. In the management of a palpable breast mass, a negative mammogram must not discourage biopsy of a clinically suspicious lesion. Electronically Signed By: Manuel higginbotham/jeffrey:05/29/2024 13:14:08 letter sent: Normal Exam ACR BI-RADS Category 1: Negative
== END ==
PROVIDERS: Referring Provider Nurse Practitioner Family; Visit Provider Nurse Practitioner Family
DX: Z12.31 Encounter for screening mammogram for malignant neoplasm of breast (principal); Z80.3 Family history of malignant neoplasm of breast; R92.333 Mammographic heterogeneous density, bilateral breasts
CPT/HCPCS: 77063; 77067

== ENCOUNTER → 2024-11-13 14:36 | Outpatient (CLI) | payer BC, OTHER, SELFPAY ==
--- NOTE | 2024-11-13 14:37 | DI.MRI.S_ITS ---
MR breast BI wo/w con: 11/13/2024. BI-RADS: 0 CLINICAL: 54-year old female for bilateral diagnostic breast MRI. Current reported family history of breast cancer: mother. PRIOR EXAMS 05/29/2024, 05/28/2023, 05/26/2022, 05/11/2021, 04/30/2020. MRI TECHNIQUE Bilateral breast MRI was performed on a 1.5 Julia magnet using a dedicated breast coil with mild compression. Axial T1 and T2 STIR sequences were obtained. Dynamic contrast enhanced VIBRANT fat-suppressed sequences were obtained. Delayed sagittal high resolution or sagittal reconstructed isotropic sequence was also obtained. Subtraction images and maximum intensity projection images were obtained. The study was evaluated using NeuroQuest software. IV Contrast: ProHance. FIBROGLANDULAR TISSUE Bilateral: C. Heterogeneous fibroglandular tissue. BACKGROUND PARENCHYMAL ENHANCEMENT Bilateral: Minimal symmetrical background parenchymal enhancement. BREAST FINDINGS Right: No suspicious mass, suspicious non-mass enhancement, or other concerning finding identified. Left: Lower Outer at 5:00, 3 cm from nipple, (Sagittal S:13/I:81), (Axial S:10/I:57), Posterior depth, measuring 0.8 x 0.5 x 0.5 cm: There is an oval, circumscribed homogeneously enhancing mass with kinetic enhancement curve showing medium initial phase and persistent pattern on delayed phase. Bilateral: No abnormal lymph nodes are seen in the axilla. ABDOMEN FINDINGS Benign non-enhancing E5r-ikpwdhmabvzt cyst in the liver. IMPRESSION: Right * No evidence of malignancy. Left (Mass): Lower Outer at 5:00, 3 cm from nipple, (Sagittal S:13/I:81), (Axial S:10/I:57), Posterior depth, measuring 0.8 x 0.5 x 0.5 cm * Incomplete - Needs additional imaging evaluation. RECOMMENDATIONS Left: Lower Outer at 5:00, 3 cm from nipple, Posterior depth * Further evaluation with diagnostic ultrasound. * Second-look ultrasound. OVERALL ASSESSMENT CATEGORY BI-RADS-0: Incomplete - Need Additional Imaging Evaluation. ELECTRONICALLY SIGNED: Jared Santiago M.D. on 11/13/2024 at 07:57:24 PM PT Interpreting Station ID: [id number]
== END ==
PROVIDERS: Referring Provider Nurse Practitioner Family; Visit Provider Nurse Practitioner Family
DX: R92.8 Other abnormal and inconclusive findings on diagnostic imaging of breast (principal); N63.23 Unspecified lump in the left breast, lower outer quadrant; R92.333 Mammographic heterogeneous density, bilateral breasts; K76.89 Other specified diseases of liver; Z80.3 Family history of malignant neoplasm of breast
CPT/HCPCS: 77049; A9579

== ENCOUNTER → 2024-12-09 08:23 | Outpatient (CLI) | payer OTHER, BC, SELFPAY ==
--- NOTE | 2024-12-09 08:24 | DI.US.S_ITS ---
US breast LT limited: 12/09/2024. BI-RADS: 1 CLINICAL: 54-year old female for left diagnostic breast ultrasound that is a follow-up to diagnostic breast MRI on 11/13/2024. Tyrer-Cuzick lifetime risk of 15.3%. Current reported family history of breast cancer: mother. PRIOR EXAMS Breast MRI(s): 11/13/2024. Five Other Exams on 05/29/2024, 05/28/2023, 05/26/2022, 05/11/2021, 04/30/2020. ULTRASOUND TECHNIQUE TARGETED Left Breast Ultrasound: Real-time ultrasound exam was performed focused to area of clinical and/or imaging concern. ULTRASOUND FINDINGS Left: There is no sonographic correlate for the finding on MRI. [employer]er images were taken at 5 o'clock, 3 cm from the nipple. No suspicious sonographic finding present. IMPRESSION: Left * No evidence of malignancy. RECOMMENDATIONS Left * Six month followup with diagnostic breast MRI. COMMENTS: Findings and recommendations were conveyed to the patient during today's evaluation. OVERALL ASSESSMENT CATEGORY BI-RADS-1: Negative. ELECTRONICALLY SIGNED: Lilli Cross M.D. on 12/09/2024 at 11:14:03 AM PT Interpreting Station ID: [id number]
== END ==
PROVIDERS: Referring Provider Nurse Practitioner Family; Visit Provider Nurse Practitioner Family
DX: R92.8 Other abnormal and inconclusive findings on diagnostic imaging of breast (principal); R92.30 Dense breasts, unspecified; Z80.3 Family history of malignant neoplasm of breast
CPT/HCPCS: 76642

== ENCOUNTER → 2025-06-01 07:34 | Outpatient (CLI) | payer BC, OTHER, SELFPAY ==
--- NOTE | 2025-06-01 07:42 | DI.MG.S_ITS ---
MM screening mammo BI: 06/01/2025. BI-RADS: 1 CLINICAL: 55-year old female for bilateral screening mammogram. Tyrer-Cuzick lifetime risk of 18.1%. Current reported family history of breast cancer: mother. PRIOR EXAMS 12/09/2024, 11/13/2024, 05/29/2024, 05/28/2023, 05/26/2022, 05/11/2021, 04/30/2020. MAMMOGRAPHY TECHNIQUE: 2D and 3D (tomosynthesis) digital mammographic views obtained, with additional images as needed for full coverage. Current study was also evaluated with a Computer Aided Detection (CAD) system. DENSITY C. The breasts are heterogeneously dense, which may obscure small masses. MAMMOGRAPHY FINDINGS Bilateral: No suspicious mass, asymmetry, microcalcification, or other abnormality seen. IMPRESSION: * No evidence of malignancy. RECOMMENDATIONS Bilateral * Annual screening mammography. OVERALL ASSESSMENT CATEGORY BI-RADS-1: Negative. The [place] [employer] recommends annual screening mammography beginning at age 40 for women with average risk of breast cancer. ELECTRONICALLY SIGNED: Guadalupe French M.D. on 06/01/2025 at 04:35:06 PM PT Interpreting Station ID: [id number]
== END ==
PROVIDERS: PCP Nurse Practitioner Family; Referring Provider Nurse Practitioner Family; Visit Provider Nurse Practitioner Family
DX: Z12.31 Encounter for screening mammogram for malignant neoplasm of breast (principal); R92.333 Mammographic heterogeneous density, bilateral breasts; Z80.3 Family history of malignant neoplasm of breast
CPT/HCPCS: 77063; 77067